=== PATIENT | female | born 1995 | race African-American/Black ===

== ENCOUNTER 2021-12-05 07:51 | Inpatient (IN) ==
[2021-12-05 09:39] LABS: Basophils # 0.1 10*3/uL (0.0-0.2); Basophils % 0.5 % (0.0-0.8); Calcium 11.1 MG/DL (8.5-10.1); Eosinophils # 0.1 10*3/uL (0.0-0.87); Eosinophils % 0.7 % (0.00-10.9); Hematocrit 36.4 VOL% (35.7-47.0); Immature Granulocytes % 0.9 %; Immature Granulocytes Absolute 0.19 #; Lymphocytes # 3.8 10*3/uL (1.4-4.0); Lymphocytes % 18.8 % (21.3-54.2); Mean Corpuscular HGB Conc 28.8 GM/DL (32-36); Monocytes # 0.6 10*3/uL (0.11-0.8); Monocytes % 2.9 % (1.7-12.7); Neutrophils % 76.2 % (38.7-73.9); Osmolality,Calculated 311.9 MOS/KG (273-304); Platelet Count 394 T/CUMM (130-400); Potassium 4.1 MMOL/L (3.5-5.1); Red Blood Count 3.57 MC/CUMM (3.8-5.5); Red Cell Distribution Width 14.4 % (9.3-17.3); White Blood Count 20.2 T/CUMM (4-12)
[2021-12-05 09:42] LABS: Hemoglobin 10.5 GM/DL (12.0-16.0)
[2021-12-05 09:59] LABS: Eosinophils 1 % (0-10); Hypochromia Slight; Lymphocytes 16 % (20-55); Total Cells Counted 100
[2021-12-05 10:00] LABS: Macrocytosis Slight; Platelet Estimate Normal
[2021-12-05] MEDS ORDERED: SODIUM CHLORIDE 0.9% 1,000 ML IV STA (10:08)
[2021-12-05 11:03] LABS: Bacteria,Urine Many /HPF (Few); Mucus,Urine Occasional /LPF (Occasional); RBC,Urine 2 /HPF (0-4); Urine Appearance Clear (Clear); Urine Color Yellow (Yellow)
[2021-12-05 11:04] LABS: Bilirubin,Urine Negative (Negative); Blood, Urine Trace mg/dL (Negative); Glucose,Urine (UA) Negative (Negative); Ketones,Urine Negative (Negative); Nitrite,Urine Positive (Negative); Protein,Urine >=300 mg/dL (Negative); Urine Urobilinogen 0.2 eU/dL (<2.0)
[2021-12-05] MEDS ORDERED: GLUCAGON 1 MG VIAL IM PRN (12:58)
[2021-12-05] MEDS ORDERED: ONDANSETRON 4 MG/2 ML VIAL IV PRN (12:58)
[2021-12-05] MEDS ORDERED: DEXTROSE 10% 250 ML BAG IV PRN (13:03)
[2021-12-05] MEDS ORDERED: ACETAMINOPHEN 160 MG/5 ML UDCUP PEG PRN (13:36)
[2021-12-05] MEDS ORDERED: ALBUTEROL/IPRATROPIUM 3 ML NEB RESP TX PRN (13:45)
[2021-12-05] MEDS: INSULIN LISPRO 100 UNIT/ML SUBCUT SCH (18:00)
[2021-12-05 18:03] LABS: Calcium 10.8 MG/DL (8.5-10.1); Osmolality,Calculated 309.7 MOS/KG (273-304); Potassium 3.7 MMOL/L (3.5-5.1)
[2021-12-05] MEDS: BACLOFEN 10 MG TABLET PEG SCH ×2 (18:50→22:44)
[2021-12-05] MEDS: MIDODRINE 5 MG TABLET PEG SCH ×2 (18:51→20:47)
[2021-12-05] MEDS: DEXTROSE 5% 1,000 ML IV SCH (19:17)
[2021-12-05] MEDS: GLUTAMINE PER TUBE SCH (20:46)
[2021-12-05] MEDS: FERROUS SULFATE 300 MG/5 ML UDCUP PO SCH (20:46)
[2021-12-05] MEDS: ARGININE PER TUBE SCH (20:46)
[2021-12-05] MEDS: [UNRECOGNIZED DRUG - OTHER] PER TUBE SCH (20:46)
[2021-12-05] MEDS: OLANZapine ODT 5 MG TABLET PO SCH (20:47)
[2021-12-05] MEDS: METOCLOPRAMIDE 10 MG/10 ML UDCUP PEG SCH (20:47)
[2021-12-05] MEDS: MELATONIN 3 MG TABLET PEG SCH (20:47)
[2021-12-05 21:41] LABS: Calcium 11.2 MG/DL (8.5-10.1); Osmolality,Calculated 314.7 MOS/KG (273-304); Potassium 3.7 MMOL/L (3.5-5.1)
[2021-12-06 01:14] LABS: Basophils # 0.1 10*3/uL (0.0-0.2); Basophils % 0.5 % (0.0-0.8); Eosinophils # 0.2 10*3/uL (0.0-0.87); Eosinophils % 1.3 % (0.00-10.9); Hematocrit 32.8 VOL% (35.7-47.0); Hemoglobin 9.7 GM/DL (12.0-16.0); Immature Granulocytes % 0.8 %; Immature Granulocytes Absolute 0.12 #; Lymphocytes # 3.2 10*3/uL (1.4-4.0); Lymphocytes % 21.5 % (21.3-54.2); Mean Corpuscular HGB Conc 29.6 GM/DL (32-36); Mean Corpuscular Volume 101.2 FL (87-102); Mean Platelet Volume 11.1 FL (9.6-12.0); Monocytes # 0.7 10*3/uL (0.11-0.8); Monocytes % 4.8 % (1.7-12.7); Neutrophils % 71.1 % (38.7-73.9); Platelet Count 300 T/CUMM (130-400); Red Blood Count 3.24 MC/CUMM (3.8-5.5); Red Cell Distribution Width 14.5 % (9.3-17.3)
[2021-12-06] MEDS: INSULIN LISPRO 100 UNIT/ML SUBCUT SCH ×4 (01:21→18:29)
[2021-12-06 01:34] LABS: Albumin 2.3 G/DL (3.4-5.0); Bilirubin,Total 0.5 MG/DL (0.20-1.00); Calcium 10.8 MG/DL (8.5-10.1); Osmolality,Calculated 310.1 MOS/KG (273-304); Potassium 3.4 MMOL/L (3.5-5.1); Total Protein 8.4 G/DL (6.4-8.2)
[2021-12-06] MEDS: DEXTROSE 5% 1,000 ML IV SCH ×4 (02:09→19:30)
[2021-12-06] MEDS: HYDROmorphone 1 MG/1 ML SYRINGE IV PRN ×3 (02:15→14:21)
[2021-12-06 06:03] LABS: Calcium 10.7 MG/DL (8.5-10.1); Osmolality,Calculated 303.4 MOS/KG (273-304); Potassium 3.5 MMOL/L (3.5-5.1)
[2021-12-06] MEDS: BACLOFEN 10 MG TABLET PEG SCH ×3 (06:31→21:38)
[2021-12-06] MEDS: GLUTAMINE PER TUBE SCH ×2 (08:31→20:04)
[2021-12-06] MEDS: ARGININE PER TUBE SCH ×2 (08:31→20:04)
[2021-12-06] MEDS: [UNRECOGNIZED DRUG - OTHER] PER TUBE SCH ×2 (08:31→20:04)
[2021-12-06] MEDS: MULTIVITAMIN LIQUID (CENTRUM) 60 ML BOTTLE PEG SCH (08:32)
[2021-12-06] MEDS: FERROUS SULFATE 300 MG/5 ML UDCUP PO SCH ×2 (08:32→20:04)
[2021-12-06] MEDS: METOCLOPRAMIDE 10 MG/10 ML UDCUP PEG SCH ×2 (08:33→20:05)
[2021-12-06] MEDS: OLANZapine ODT 5 MG TABLET PO SCH ×2 (08:33→20:05)
[2021-12-06] MEDS: SERTRALINE 50 MG TABLET PEG SCH (08:33)
[2021-12-06] MEDS: POLYETHYLENE GLYCOL POWDER 17 GM PACK PEG SCH (08:33)
[2021-12-06] MEDS: MIDODRINE 5 MG TABLET PEG SCH ×3 (08:33→20:05)
[2021-12-06 09:27] LABS: Osmolality,Calculated 296.7 MOS/KG (273-304); Potassium 3.5 MMOL/L (3.5-5.1)
[2021-12-06] MEDS: COLLAGENASE OINT 30 GM TUBE TOP SCH (11:08)
[2021-12-06] MEDS: GENTAMICIN 0.1% OINT 15 GM TUBE TOP SCH (11:08)
[2021-12-06] MEDS ORDERED: VANCOMYCIN INJ 1,000 MG in SODIUM CHLORIDE 0.9% 250 ML IV SCH (16:00)
[2021-12-06] MEDS: VANCOMYCIN INJ 750 MG in SODIUM CHLORIDE 0.9% 250 ML IV SCH (17:06)
[2021-12-06] MEDS: MELATONIN 3 MG TABLET PEG SCH (20:04)
[2021-12-07] MEDS: INSULIN LISPRO 100 UNIT/ML SUBCUT SCH ×6 (00:36→23:54)
[2021-12-07] MEDS: DEXTROSE 5% 1,000 ML IV SCH ×4 (02:11→20:48)
[2021-12-07] MEDS: VANCOMYCIN INJ 750 MG in SODIUM CHLORIDE 0.9% 250 ML IV SCH ×2 (04:53→17:47)
[2021-12-07] MEDS: BACLOFEN 10 MG TABLET PEG SCH ×3 (05:11→21:07)
[2021-12-07 05:15] LABS: Basophils # 0.1 10*3/uL (0.0-0.2); Basophils % 0.5 % (0.0-0.8); Eosinophils # 0.3 10*3/uL (0.0-0.87); Hematocrit 28.1 VOL% (35.7-47.0); Hemoglobin 8.4 GM/DL (12.0-16.0); Immature Granulocytes % 0.8 %; Immature Granulocytes Absolute 0.13 #; Lymphocytes # 3.7 10*3/uL (1.4-4.0); Lymphocytes % 21.8 % (21.3-54.2); Mean Corpuscular HGB Conc 29.9 GM/DL (32-36); Mean Corpuscular Volume 100.4 FL (87-102); Mean Platelet Volume 11.5 FL (9.6-12.0); Monocytes # 0.9 10*3/uL (0.11-0.8); Monocytes % 5.6 % (1.7-12.7); Neutrophils % 69.3 % (38.7-73.9); Platelet Count 275 T/CUMM (130-400); Red Cell Distribution Width 13.8 % (9.3-17.3); White Blood Count 16.9 T/CUMM (4-12)
[2021-12-07 05:42] LABS: Calcium 10.3 MG/DL (8.5-10.1); Osmolality,Calculated 288.1 MOS/KG (273-304); Potassium 2.8 MMOL/L (3.5-5.1)
[2021-12-07] MEDS: HYDROmorphone 1 MG/1 ML SYRINGE IV PRN ×2 (06:00→21:33)
[2021-12-07] MEDS ORDERED: FUROSEMIDE 40 MG/4 ML VIAL IV ONE (10:58)
[2021-12-07] MEDS: SODIUM CHLOR 0.9% KCL 20 MEQ 20 MEQ/1,000 ML BAG IV SCH ×2 (11:18→20:37)
[2021-12-07] MEDS: GENTAMICIN 0.1% OINT 15 GM TUBE TOP SCH (11:22)
[2021-12-07] MEDS: COLLAGENASE OINT 30 GM TUBE TOP SCH (11:22)
[2021-12-07] MEDS: MULTIVITAMIN LIQUID (CENTRUM) 60 ML BOTTLE PEG SCH (11:23)
[2021-12-07] MEDS: GLUTAMINE PER TUBE SCH ×2 (11:23→20:40)
[2021-12-07] MEDS: FERROUS SULFATE 300 MG/5 ML UDCUP PO SCH ×2 (11:23→20:40)
[2021-12-07] MEDS: ARGININE PER TUBE SCH ×2 (11:23→20:40)
[2021-12-07] MEDS: POLYETHYLENE GLYCOL POWDER 17 GM PACK PEG SCH (11:23)
[2021-12-07] MEDS: [UNRECOGNIZED DRUG - OTHER] PER TUBE SCH ×2 (11:23→20:40)
[2021-12-07] MEDS: SERTRALINE 50 MG TABLET PEG SCH (11:24)
[2021-12-07] MEDS: OLANZapine ODT 5 MG TABLET PO SCH ×2 (11:24→20:41)
[2021-12-07] MEDS: METOCLOPRAMIDE 10 MG/10 ML UDCUP PEG SCH ×2 (11:24→20:41)
[2021-12-07] MEDS: MIDODRINE 5 MG TABLET PEG SCH ×3 (11:24→20:41)
[2021-12-07] MEDS: ENOXAPARIN 30 MG/0.3 ML SYRINGE SUBCUT SCH (13:05)
[2021-12-07] MEDS: cefTRIAXone 1,000 MG in SODIUM CHLORIDE 0.9% 100 ML IV SCH (13:06)
[2021-12-07 17:16] LABS: Calcium 10.3 MG/DL (8.5-10.1); Osmolality,Calculated 282.3 MOS/KG (273-304); Potassium 2.9 MMOL/L (3.5-5.1)
[2021-12-07] MEDS: MELATONIN 3 MG TABLET PEG SCH (20:40)
[2021-12-08] MEDS: DEXTROSE 5% 1,000 ML IV SCH ×2 (02:48→11:00)
[2021-12-08] MEDS: VANCOMYCIN INJ 750 MG in SODIUM CHLORIDE 0.9% 250 ML IV SCH ×2 (03:59→17:05)
[2021-12-08] MEDS: SODIUM CHLOR 0.9% KCL 20 MEQ 20 MEQ/1,000 ML BAG IV SCH ×3 (05:20→23:47)
[2021-12-08] MEDS: BACLOFEN 10 MG TABLET PEG SCH ×3 (05:44→22:00)
[2021-12-08] MEDS: INSULIN LISPRO 100 UNIT/ML SUBCUT SCH ×3 (05:56→17:17)
[2021-12-08 06:06] LABS: Basophils % 0.3 % (0.0-0.8); Eosinophils # 0.2 10*3/uL (0.0-0.87); Eosinophils % 2.4 % (0.00-10.9); Hematocrit 23.5 VOL% (35.7-47.0); Hemoglobin 7.2 GM/DL (12.0-16.0); Immature Granulocytes % 0.8 %; Immature Granulocytes Absolute 0.07 #; Lymphocytes # 2.1 10*3/uL (1.4-4.0); Lymphocytes % 24.2 % (21.3-54.2); Mean Corpuscular HGB Conc 30.6 GM/DL (32-36); Mean Corpuscular Volume 97.9 FL (87-102); Monocytes # 0.4 10*3/uL (0.11-0.8); Monocytes % 4.8 % (1.7-12.7); Neutrophils % 67.5 % (38.7-73.9); Platelet Count 216 T/CUMM (130-400); Red Cell Distribution Width 13.8 % (9.3-17.3); White Blood Count 8.8 T/CUMM (4-12)
[2021-12-08 06:21] LABS: Calcium 8.6 MG/DL (8.5-10.1); Osmolality,Calculated 286.7 MOS/KG (273-304); Potassium 3.1 MMOL/L (3.5-5.1)
[2021-12-08] MEDS ORDERED: LACTATED RINGERS 1,000 ML IV SCH (08:18)
[2021-12-08] MEDS ORDERED: POTASSIUM BICARB EFFERVESCENT 20 MEQ TAB.EFF PO ONE (08:35)
[2021-12-08] MEDS ORDERED: MAGNESIUM SULF RIDER 2 GM/50 ML PREMIX IV ONE (08:36)
[2021-12-08] MEDS ORDERED: propofoL 200 MG/20 ML VIAL IV ONE (09:02)
[2021-12-08] MEDS ORDERED: LIDOCAINE 2% 5 ML VIAL ONE (09:02)
[2021-12-08] MEDS: FERROUS SULFATE 300 MG/5 ML UDCUP PO SCH ×2 (10:56→20:58)
[2021-12-08] MEDS: ARGININE PER TUBE SCH ×2 (10:56→20:54)
[2021-12-08] MEDS: POLYETHYLENE GLYCOL POWDER 17 GM PACK PEG SCH (10:56)
[2021-12-08] MEDS: [UNRECOGNIZED DRUG - OTHER] PER TUBE SCH ×2 (10:56→20:54)
[2021-12-08] MEDS: GENTAMICIN 0.1% OINT 15 GM TUBE TOP SCH (10:56)
[2021-12-08] MEDS: GLUTAMINE PER TUBE SCH ×2 (10:56→20:54)
[2021-12-08] MEDS: MIDODRINE 5 MG TABLET PEG SCH ×3 (10:56→20:58)
[2021-12-08] MEDS: MULTIVITAMIN LIQUID (CENTRUM) 60 ML BOTTLE PEG SCH (10:56)
[2021-12-08] MEDS: OLANZapine ODT 5 MG TABLET PO SCH ×2 (10:57→20:58)
[2021-12-08] MEDS: METOCLOPRAMIDE 10 MG/10 ML UDCUP PEG SCH ×2 (10:57→20:58)
[2021-12-08] MEDS: SERTRALINE 50 MG TABLET PEG SCH (10:57)
[2021-12-08] MEDS: COLLAGENASE OINT 30 GM TUBE TOP SCH (10:57)
[2021-12-08] MEDS: cefTRIAXone 1,000 MG in SODIUM CHLORIDE 0.9% 100 ML IV SCH (10:57)
[2021-12-08] MEDS: ENOXAPARIN 30 MG/0.3 ML SYRINGE SUBCUT SCH (12:11)
[2021-12-08] MEDS ORDERED: ERTAPENEM 500 MG in SODIUM CHLORIDE 0.9% 100 ML IV SCH (15:00)
[2021-12-08] MEDS: MELATONIN 3 MG TABLET PEG SCH (20:58)
[2021-12-09] MEDS: INSULIN LISPRO 100 UNIT/ML SUBCUT SCH ×2 (00:51→06:03)
[2021-12-09] MEDS: VANCOMYCIN INJ 750 MG in SODIUM CHLORIDE 0.9% 250 ML IV SCH (03:56)
[2021-12-09] MEDS: HYDROmorphone 1 MG/1 ML SYRINGE IV PRN ×2 (04:22→09:18)
[2021-12-09] MEDS: BACLOFEN 10 MG TABLET PEG SCH (06:10)
[2021-12-09] MEDS: GENTAMICIN 0.1% OINT 15 GM TUBE TOP SCH (09:13)
[2021-12-09] MEDS: COLLAGENASE OINT 30 GM TUBE TOP SCH (09:13)
[2021-12-09 09:15] LABS: Calcium 9.7 MG/DL (8.5-10.1); Osmolality,Calculated 286.8 MOS/KG (273-304); Potassium 4.4 MMOL/L (3.5-5.1)
[2021-12-09] MEDS: OLANZapine ODT 5 MG TABLET PO SCH (09:16)
[2021-12-09] MEDS: MIDODRINE 5 MG TABLET PEG SCH (09:18)
[2021-12-09] MEDS: METOCLOPRAMIDE 10 MG/10 ML UDCUP PEG SCH (09:18)
[2021-12-09] MEDS: POLYETHYLENE GLYCOL POWDER 17 GM PACK PEG SCH (09:18)
[2021-12-09] MEDS: FERROUS SULFATE 300 MG/5 ML UDCUP PO SCH (09:18)
[2021-12-09] MEDS: SERTRALINE 50 MG TABLET PEG SCH (09:18)
[2021-12-09] MEDS: MULTIVITAMIN LIQUID (CENTRUM) 60 ML BOTTLE PEG SCH (09:56)
[2021-12-09] MEDS: [UNRECOGNIZED DRUG - OTHER] PER TUBE SCH (10:30)
[2021-12-09] MEDS: GLUTAMINE PER TUBE SCH (10:30)
[2021-12-09] MEDS: ARGININE PER TUBE SCH (10:30)
[2021-12-09 12:03] VITALS: BP 131/88
== END 2021-12-09 12:02 | DRG 426 ==
LOC: N.ED 07:51 → SUATTDRO 12:59 → N.EDINP 12:59 → N.TELEN 18:07
PROVIDERS: ADMIT Internal Medicine Geriatric Medicine; ATTEND Internal Medicine

== ENCOUNTER 2021-12-17 20:30 | Inpatient (IN) ==
[2021-12-18] MEDS ORDERED: PIPERACILLIN/TAZOBACTAM 3,375 MG in SODIUM CHLORIDE 0.9% 100 ML IV STA (02:03)
[2021-12-18] MEDS ORDERED: VANCOMYCIN INJ 1,000 MG in SODIUM CHLORIDE 0.9% 250 ML IV STA (02:03)
[2021-12-18 02:14] LABS: Bacteria,Urine Occasional /HPF (Few); Mucus,Urine Occasional /LPF (Occasional); RBC,Urine 6 /HPF (0-4)
[2021-12-18 02:15] LABS: Bilirubin,Urine Negative (Negative); Blood, Urine Negative (Negative); Glucose,Urine (UA) Negative (Negative); Ketones,Urine Negative (Negative); Nitrite,Urine Negative (Negative); Protein,Urine >=300 mg/dL (Negative); Urine Appearance Clear (Clear); Urine Color Yellow (Yellow); Urine Specific Gravity >= 1.030 (1.001-1.035); Urine Urobilinogen 0.2 eU/dL (<2.0); Urine pH 5.5 (4.5-8.0)
[2021-12-18 02:17] LABS: Albumin 2.2 G/DL (3.4-5.0); Bilirubin,Total 0.4 MG/DL (0.20-1.00); Calcium 11.5 MG/DL (8.5-10.1); Osmolality,Calculated 336.4 MOS/KG (273-304); Potassium 3.6 MMOL/L (3.5-5.1)
[2021-12-18 02:19] LABS: Basophils # 0.1 10*3/uL (0.0-0.2); Basophils % 0.3 % (0.0-0.8); Immature Granulocytes % 0.6 %; Immature Granulocytes Absolute 0.13 #; Mean Corpuscular HGB Conc 29.3 GM/DL (32-36); Mean Corpuscular Volume 100.9 FL (87-102); Monocytes # 2.1 10*3/uL (0.11-0.8); Monocytes % 9.9 % (1.7-12.7); NRBC # 0.02 10*3/uL; Neutrophils % 75.2 % (38.7-73.9); Platelet Count 439 T/CUMM (130-400); Red Blood Count 3.38 MC/CUMM (3.8-5.5); Red Cell Distribution Width 14.6 % (9.3-17.3)
[2021-12-18 02:21] LABS: Hematocrit 34.1 VOL% (35.7-47.0)
[2021-12-18] MEDS ORDERED: INSULIN REGULAR 100 UNIT/ML SUBCUT STA (02:28)
[2021-12-18 02:38] LABS: Band Neutrophils 1 % (0-10); Lymphocytes 21 % (20-55); Nucleated Red Blood Cells 1 (0-5); Platelet Estimate Increased; Total Cells Counted 100
[2021-12-18] MEDS ORDERED: DEXTROSE 10% 250 ML BAG IV PRN (02:57)
[2021-12-18] MEDS ORDERED: GLUCAGON 1 MG VIAL IM PRN (02:57)
[2021-12-18] MEDS ORDERED: SODIUM CHLORIDE 0.9% 1,000 ML IV STA (03:18)
[2021-12-18] MEDS ORDERED: LACTATED RINGERS 1,000 ML IV ONE (04:58)
[2021-12-18] MEDS: SODIUM CHLORIDE 0.45% 1,000 ML IV SCH ×2 (05:26→12:33)
[2021-12-18] MEDS: INSULIN LISPRO 100 UNIT/ML SUBCUT SCH ×3 (06:32→17:29)
[2021-12-18] MEDS: ALBUTEROL/IPRATROPIUM 3 ML NEB RESP TX SCH ×3 (07:26→19:01)
[2021-12-18 07:57] LABS: Calcium 10.8 MG/DL (8.5-10.1); Osmolality,Calculated 333.6 MOS/KG (273-304); Potassium 3.3 MMOL/L (3.5-5.1)
[2021-12-18 08:03] LABS: Basophils % 0.3 % (0.0-0.8); Eosinophils % 0.1 % (0.00-10.9); Hematocrit 34.9 VOL% (35.7-47.0); Hemoglobin 10.3 GM/DL (12.0-16.0); Immature Granulocytes % 0.5 %; Immature Granulocytes Absolute 0.06 #; Lymphocytes % 16.7 % (21.3-54.2); Mean Corpuscular HGB Conc 29.5 GM/DL (32-36); Mean Platelet Volume 11.7 FL (9.6-12.0); Monocytes % 8.4 % (1.7-12.7); NRBC # 0.03 10*3/uL; Platelet Count 353 T/CUMM (130-400); Red Blood Count 3.49 MC/CUMM (3.8-5.5); Red Cell Distribution Width 14.6 % (9.3-17.3); White Blood Count 11.9 T/CUMM (4-12)
[2021-12-18 08:12] LABS: Band Neutrophils 9 % (0-10); Eosinophils 2 % (0-10); Lymphocytes 22 % (20-55); Metamyelocytes 1 %; Total Cells Counted 100
[2021-12-18] MEDS: PIPERACILLIN/TAZOBACTAM 3,375 MG in SODIUM CHLORIDE 0.9% 100 ML IV SCH ×2 (09:14→17:12)
[2021-12-18] MEDS: PANTOPRAZOLE 40 MG VIAL IV SCH (09:16)
[2021-12-18] MEDS ORDERED: SODIUM CHLORIDE 0.9% 500 ML IV ONE (11:47)
[2021-12-18] MEDS ORDERED: SODIUM CHLORIDE 0.45% 500 ML IV ONE (13:00)
[2021-12-18] MEDS: DEXTROSE 5% 1,000 ML IV SCH (14:32)
[2021-12-18] MEDS ORDERED: ZINC OXIDE PASTE 113 GM TUBE TOP PRN (14:40)
[2021-12-18] MEDS: MIDODRINE 5 MG TABLET PEG SCH ×2 (15:16→20:23)
[2021-12-18] MEDS: METOCLOPRAMIDE 10 MG/10 ML UDCUP PER TUBE SCH (20:23)
[2021-12-19] MEDS: DEXTROSE 5% 1,000 ML IV SCH ×3 (00:34→18:35)
[2021-12-19] MEDS: PIPERACILLIN/TAZOBACTAM 3,375 MG in SODIUM CHLORIDE 0.9% 100 ML IV SCH ×3 (00:35→16:59)
[2021-12-19] MEDS: ALBUTEROL/IPRATROPIUM 3 ML NEB RESP TX SCH ×4 (00:39→19:49)
[2021-12-19] MEDS: INSULIN LISPRO 100 UNIT/ML SUBCUT SCH ×4 (02:14→18:35)
[2021-12-19] MEDS ORDERED: VANCOMYCIN INJ 750 MG in SODIUM CHLORIDE 0.9% 250 ML IV SCH (03:00)
[2021-12-19 05:18] LABS: Calcium 9.8 MG/DL (8.5-10.1); Osmolality,Calculated 321.9 MOS/KG (273-304); Phosphorous 1.2 MG/DL (2.5-4.9); Potassium 2.7 MMOL/L (3.5-5.1)
[2021-12-19 05:33] LABS: Basophils % 0.2 % (0.0-0.8); Eosinophils % 0.1 % (0.00-10.9); Hematocrit 27.3 VOL% (35.7-47.0); Immature Granulocytes % 0.6 %; Lymphocytes # 2.3 10*3/uL (1.4-4.0); Lymphocytes % 12.8 % (21.3-54.2); Mean Corpuscular HGB Conc 29.3 GM/DL (32-36); Mean Corpuscular Volume 101.9 FL (87-102); Mean Platelet Volume 12.5 FL (9.6-12.0); Monocytes % 5.4 % (1.7-12.7); NRBC # 0.03 10*3/uL; Neutrophils % 80.9 % (38.7-73.9); Platelet Count 300 T/CUMM (130-400); Red Blood Count 2.68 MC/CUMM (3.8-5.5); Red Cell Distribution Width 14.9 % (9.3-17.3); White Blood Count 17.9 T/CUMM (4-12)
[2021-12-19 06:27] LABS: Band Neutrophils 7 % (0-10); Lymphocytes 19 % (20-55); Total Cells Counted 100
[2021-12-19 06:28] LABS: Platelet Estimate Adequate
[2021-12-19] MEDS: CALCIUM ACETATE 667 MG CAPSULE PEG SCH ×4 (11:09→20:52)
[2021-12-19] MEDS: METOCLOPRAMIDE 10 MG/10 ML UDCUP PER TUBE SCH ×2 (11:11→20:52)
[2021-12-19] MEDS: MIDODRINE 5 MG TABLET PEG SCH ×3 (11:12→20:56)
[2021-12-19] MEDS: PANTOPRAZOLE 40 MG VIAL IV SCH (11:13)
[2021-12-19] MEDS: POTASSIUM BICARB EFFERVESCENT 20 MEQ TAB.EFF PER TUBE PRN ×4 (11:13→18:36)
[2021-12-19] MEDS: ACETAMINOPHEN 325 MG/10.15 ML UDCUP PO PRN ×2 (14:07→20:52)
[2021-12-19] MEDS: METOPROLOL TARTRATE 25 MG TABLET PO SCH ×2 (14:09→20:53)
[2021-12-19] MEDS ORDERED: METOPROLOL TARTRATE 25 MG TABLET PO SCH (21:00)
[2021-12-20] MEDS: ALBUTEROL/IPRATROPIUM 3 ML NEB RESP TX SCH ×4 (00:41→19:23)
[2021-12-20] MEDS: PIPERACILLIN/TAZOBACTAM 3,375 MG in SODIUM CHLORIDE 0.9% 100 ML IV SCH ×2 (00:44→10:55)
[2021-12-20] MEDS: INSULIN LISPRO 100 UNIT/ML SUBCUT SCH ×4 (00:45→19:28)
[2021-12-20 04:57] LABS: Basophils % 0.2 % (0.0-0.8); Eosinophils # 0.3 10*3/uL (0.0-0.87); Eosinophils % 1.5 % (0.00-10.9); Hematocrit 27.6 VOL% (35.7-47.0); Immature Granulocytes % 1.1 %; Immature Granulocytes Absolute 0.23 #; Lymphocytes # 3.3 10*3/uL (1.4-4.0); Lymphocytes % 15.7 % (21.3-54.2); Mean Corpuscular Volume 102.6 FL (87-102); Mean Platelet Volume 12.5 FL (9.6-12.0); Monocytes # 1.1 10*3/uL (0.11-0.8); Monocytes % 5.1 % (1.7-12.7); Neutrophils % 76.4 % (38.7-73.9); Platelet Count 265 T/CUMM (130-400); Red Blood Count 2.69 MC/CUMM (3.8-5.5); Red Cell Distribution Width 14.7 % (9.3-17.3); White Blood Count 20.7 T/CUMM (4-12)
[2021-12-20 05:17] LABS: Calcium 10.2 MG/DL (8.5-10.1); Osmolality,Calculated 299.4 MOS/KG (273-304); Potassium 3.8 MMOL/L (3.5-5.1)
[2021-12-20 05:21] LABS: Band Neutrophils 3 % (0-10); Lymphocytes 18 % (20-55); Total Cells Counted 100
[2021-12-20 05:22] LABS: Hypochromia Slight; Platelet Estimate Normal
[2021-12-20] MEDS: ACETAMINOPHEN 325 MG/10.15 ML UDCUP PO PRN ×2 (05:57→15:50)
[2021-12-20] MEDS ORDERED: HYDROcod/ACETAMIN 7.5-325 MG/15 ML UDCUP PO PRN (07:35)
[2021-12-20] MEDS: CALCIUM ACETATE 667 MG CAPSULE PEG SCH (10:56)
[2021-12-20] MEDS: METOCLOPRAMIDE 10 MG/10 ML UDCUP PER TUBE SCH ×2 (10:56→20:10)
[2021-12-20] MEDS: SERTRALINE 50 MG TABLET PEG SCH (10:56)
[2021-12-20] MEDS: PANTOPRAZOLE 40 MG VIAL IV SCH (10:56)
[2021-12-20] MEDS: MIDODRINE 5 MG TABLET PEG SCH ×3 (10:56→20:10)
[2021-12-20] MEDS: DEXTROSE 5% 1,000 ML IV SCH ×3 (11:23→12:46)
[2021-12-20] MEDS: POTASSIUM PHOSPHATE 30 MMOL in SODIUM CHLORIDE 0.9% 250 ML IV SCH ×2 (11:25→17:18)
[2021-12-20] MEDS: HYDROcod/ACETAMIN 7.5-325 MG/15 ML UDCUP PEG PRN ×2 (11:26→20:10)
[2021-12-20] MEDS: METOPROLOL TARTRATE 25 MG TABLET PO SCH (12:46)
[2021-12-20] MEDS: MEROPENEM 500 MG in SODIUM CHLORIDE 0.9% 100 ML IV SCH ×2 (15:35→20:09)
[2021-12-20] MEDS: VANCOMYCIN INJ 750 MG in SODIUM CHLORIDE 0.9% 250 ML IV SCH (17:18)
[2021-12-21] MEDS: DEXTROSE 5% 1,000 ML IV SCH ×3 (00:27→10:16)
[2021-12-21] MEDS: ALBUTEROL/IPRATROPIUM 3 ML NEB RESP TX SCH ×4 (00:40→19:14)
[2021-12-21] MEDS: INSULIN LISPRO 100 UNIT/ML SUBCUT SCH ×4 (01:00→19:01)
[2021-12-21] MEDS: HYDROcod/ACETAMIN 7.5-325 MG/15 ML UDCUP PEG PRN ×3 (02:53→20:35)
[2021-12-21] MEDS: VANCOMYCIN INJ 750 MG in SODIUM CHLORIDE 0.9% 250 ML IV SCH ×2 (02:53→16:02)
[2021-12-21] MEDS: MEROPENEM 500 MG in SODIUM CHLORIDE 0.9% 100 ML IV SCH ×4 (02:54→20:33)
[2021-12-21 05:12] LABS: Basophils # 0.1 10*3/uL (0.0-0.2); Basophils % 0.3 % (0.0-0.8); Eosinophils # 0.5 10*3/uL (0.0-0.87); Eosinophils % 2.9 % (0.00-10.9); Hematocrit 24.3 VOL% (35.7-47.0); Immature Granulocytes % 2.2 %; Immature Granulocytes Absolute 0.39 #; Lymphocytes # 2.1 10*3/uL (1.4-4.0); Lymphocytes % 11.6 % (21.3-54.2); Mean Corpuscular HGB Conc 28.8 GM/DL (32-36); Mean Corpuscular Volume 102.5 FL (87-102); Mean Platelet Volume 12.1 FL (9.6-12.0); Monocytes # 1.2 10*3/uL (0.11-0.8); Monocytes % 6.7 % (1.7-12.7); Neutrophils % 76.3 % (38.7-73.9); Platelet Count 229 T/CUMM (130-400); Red Blood Count 2.37 MC/CUMM (3.8-5.5); Red Cell Distribution Width 14.3 % (9.3-17.3); White Blood Count 17.9 T/CUMM (4-12)
[2021-12-21 05:44] LABS: Calcium 8.7 MG/DL (8.5-10.1); Osmolality,Calculated 283.5 MOS/KG (273-304); Potassium 4.1 MMOL/L (3.5-5.1)
[2021-12-21 06:02] LABS: Band Neutrophils 5 % (0-10); Eosinophils 4 % (0-10); Hypochromia Slight; Lymphocytes 13 % (20-55); Polychromasia Slight; Total Cells Counted 100
[2021-12-21 06:03] LABS: Microcytosis Slight; Platelet Estimate Normal
[2021-12-21] MEDS ORDERED: SODIUM CHLORIDE 0.9% 1,000 ML IV PRN (07:41)
[2021-12-21] MEDS ORDERED: MAGNESIUM SULF RIDER 4 GM/100 ML PREMIX IV ONE (08:30)
[2021-12-21] MEDS: SERTRALINE 50 MG TABLET PEG SCH (10:15)
[2021-12-21] MEDS: CHOLECALCIFEROL 5,000 UNIT TABLET PER TUBE SCH (10:15)
[2021-12-21] MEDS: MIDODRINE 5 MG TABLET PEG SCH ×2 (10:15→20:34)
[2021-12-21] MEDS: PANTOPRAZOLE 40 MG VIAL IV SCH (10:15)
[2021-12-21] MEDS: METOCLOPRAMIDE 10 MG/10 ML UDCUP PER TUBE SCH ×2 (10:16→20:34)
[2021-12-21] MEDS: ACETAMINOPHEN 325 MG/10.15 ML UDCUP PO PRN (10:24)
[2021-12-21 10:28] LABS: Hematocrit 27.1 VOL% (35.7-47.0); Hemoglobin 7.8 GM/DL (12.0-16.0)
[2021-12-22] MEDS: ALBUTEROL/IPRATROPIUM 3 ML NEB RESP TX SCH ×4 (00:09→20:04)
[2021-12-22] MEDS: INSULIN LISPRO 100 UNIT/ML SUBCUT SCH ×4 (00:52→18:21)
[2021-12-22] MEDS: ACETAMINOPHEN 325 MG/10.15 ML UDCUP PO PRN ×2 (00:55→20:25)
[2021-12-22] MEDS: MEROPENEM 500 MG in SODIUM CHLORIDE 0.9% 100 ML IV SCH ×3 (01:00→14:12)
[2021-12-22] MEDS: VANCOMYCIN INJ 750 MG in SODIUM CHLORIDE 0.9% 250 ML IV SCH ×2 (02:43→14:55)
[2021-12-22] MEDS: DEXTROSE 5% 1,000 ML IV SCH ×2 (02:50→12:45)
[2021-12-22 06:44] LABS: Basophils # 0.1 10*3/uL (0.0-0.2); Basophils % 0.3 % (0.0-0.8); Eosinophils # 0.6 10*3/uL (0.0-0.87); Eosinophils % 3.1 % (0.00-10.9); Hemoglobin 8.3 GM/DL (12.0-16.0); Immature Granulocytes % 5.4 %; Immature Granulocytes Absolute 1.11 #; Lymphocytes # 2.2 10*3/uL (1.4-4.0); Lymphocytes % 10.8 % (21.3-54.2); Mean Corpuscular HGB Conc 30.7 GM/DL (32-36); Mean Corpuscular Volume 94.4 FL (87-102); Mean Platelet Volume 11.6 FL (9.6-12.0); Monocytes # 1.2 10*3/uL (0.11-0.8); Monocytes % 5.8 % (1.7-12.7); Neutrophils % 74.6 % (38.7-73.9); Platelet Count 255 T/CUMM (130-400); Red Blood Count 2.86 MC/CUMM (3.8-5.5); Red Cell Distribution Width 16.2 % (9.3-17.3); White Blood Count 20.6 T/CUMM (4-12)
[2021-12-22 07:02] LABS: Band Neutrophils 3 % (0-10); Eosinophils 3 % (0-10); Lymphocytes 10 % (20-55); Platelet Estimate Adequate; Total Cells Counted 100
[2021-12-22 07:03] LABS: Hypochromia Slight
[2021-12-22 07:18] LABS: Calcium 8.5 MG/DL (8.5-10.1); Osmolality,Calculated 276.8 MOS/KG (273-304); Potassium 4.3 MMOL/L (3.5-5.1)
[2021-12-22] MEDS: HYDROcod/ACETAMIN 7.5-325 MG/15 ML UDCUP PEG PRN ×2 (07:33→18:26)
[2021-12-22] MEDS: PANTOPRAZOLE 40 MG VIAL IV SCH (09:04)
[2021-12-22] MEDS: CHOLECALCIFEROL 5,000 UNIT TABLET PER TUBE SCH (09:06)
[2021-12-22] MEDS: METOCLOPRAMIDE 10 MG/10 ML UDCUP PER TUBE SCH ×2 (09:06→20:25)
[2021-12-22] MEDS: SERTRALINE 50 MG TABLET PEG SCH (09:06)
[2021-12-22] MEDS: MIDODRINE 5 MG TABLET PEG SCH ×2 (09:06→20:25)
[2021-12-22] MEDS ORDERED: cefTRIAXone 2,000 MG in SODIUM CHLORIDE 0.9% 100 ML IV SCH (16:00)
[2021-12-22] MEDS ORDERED: FUROSEMIDE 20 MG/2 ML VIAL IV ONE (16:22)
[2021-12-22] MEDS ORDERED: ERTAPENEM 1,000 MG in SODIUM CHLORIDE 0.9% 100 ML IV SCH (17:00)
[2021-12-22] MEDS: GENTAMICIN INJ 360 MG in SODIUM CHLORIDE 0.9% 100 ML IV SCH (18:20)
[2021-12-22] MEDS: METOPROLOL TARTRATE 25 MG TABLET PO SCH (20:24)
[2021-12-23] MEDS: INSULIN LISPRO 100 UNIT/ML SUBCUT SCH ×4 (00:20→18:03)
[2021-12-23] MEDS: ALBUTEROL/IPRATROPIUM 3 ML NEB RESP TX SCH ×5 (01:25→18:53)
[2021-12-23 04:42] LABS: Basophils # 0.2 10*3/uL (0.0-0.2); Basophils % 0.7 % (0.0-0.8); Eosinophils # 0.4 10*3/uL (0.0-0.87); Hematocrit 29.4 VOL% (35.7-47.0); Hemoglobin 9.1 GM/DL (12.0-16.0); Immature Granulocytes % 6.8 %; Immature Granulocytes Absolute 1.49 #; Lymphocytes # 2.9 10*3/uL (1.4-4.0); Lymphocytes % 13.3 % (21.3-54.2); Mean Corpuscular Volume 94.2 FL (87-102); Monocytes # 1.3 10*3/uL (0.11-0.8); Monocytes % 5.7 % (1.7-12.7); NRBC # 0.02 10*3/uL; Neutrophils % 71.5 % (38.7-73.9); Platelet Count 344 T/CUMM (130-400); Red Blood Count 3.12 MC/CUMM (3.8-5.5)
[2021-12-23 05:09] LABS: Band Neutrophils 2 % (0-10); Eosinophils 1 % (0-10); Hypochromia Slight; Lymphocytes 8 % (20-55); Platelet Estimate Adequate; Total Cells Counted 100
[2021-12-23] MEDS ORDERED: DIGOXIN 0.5 MG/2 ML AMP IV ONE (09:10)
[2021-12-23] MEDS: METOPROLOL TARTRATE 25 MG TABLET PO SCH ×2 (10:31→20:00)
[2021-12-23] MEDS: MIDODRINE 5 MG TABLET PEG SCH ×2 (10:31→20:00)
[2021-12-23] MEDS: SERTRALINE 50 MG TABLET PEG SCH (10:31)
[2021-12-23] MEDS: CHOLECALCIFEROL 5,000 UNIT TABLET PER TUBE SCH (10:31)
[2021-12-23] MEDS: METOCLOPRAMIDE 10 MG/10 ML UDCUP PER TUBE SCH ×2 (10:31→20:00)
[2021-12-23] MEDS: PANTOPRAZOLE 40 MG VIAL IV SCH (10:32)
[2021-12-23] MEDS: MICAFUNGIN 100 MG in SODIUM CHLORIDE 0.9% 100 ML IV SCH (10:48)
[2021-12-23] MEDS: ACETAMINOPHEN 325 MG/10.15 ML UDCUP PO PRN ×2 (13:46→20:00)
[2021-12-23] MEDS ORDERED: FUROSEMIDE 40 MG/4 ML VIAL IV ONE (14:00)
[2021-12-23] MEDS: GENTAMICIN INJ 360 MG in SODIUM CHLORIDE 0.9% 100 ML IV SCH (17:43)
[2021-12-24] MEDS: ALBUTEROL/IPRATROPIUM 3 ML NEB RESP TX SCH ×4 (00:01→18:55)
[2021-12-24] MEDS: INSULIN LISPRO 100 UNIT/ML SUBCUT SCH ×4 (00:09→17:54)
[2021-12-24 05:23] LABS: Basophils # 0.2 10*3/uL (0.0-0.2); Basophils % 0.6 % (0.0-0.8); Eosinophils # 0.3 10*3/uL (0.0-0.87); Eosinophils % 1.1 % (0.00-10.9); Hemoglobin 9.4 GM/DL (12.0-16.0); Immature Granulocytes % 8.4 %; Immature Granulocytes Absolute 2.07 #; Lymphocytes # 4.4 10*3/uL (1.4-4.0); Lymphocytes % 17.9 % (21.3-54.2); Mean Corpuscular HGB Conc 30.3 GM/DL (32-36); Mean Platelet Volume 11.3 FL (9.6-12.0); Monocytes # 1.5 10*3/uL (0.11-0.8); Monocytes % 6.2 % (1.7-12.7); Neutrophils % 65.8 % (38.7-73.9); Platelet Count 414 T/CUMM (130-400); Red Blood Count 3.23 MC/CUMM (3.8-5.5); Red Cell Distribution Width 16.2 % (9.3-17.3); White Blood Count 24.5 T/CUMM (4-12)
[2021-12-24 05:38] LABS: Calcium 10.4 MG/DL (8.5-10.1); Osmolality,Calculated 291.8 MOS/KG (273-304); Potassium 3.6 MMOL/L (3.5-5.1)
[2021-12-24 05:46] LABS: Band Neutrophils 4 % (0-10); Lymphocytes 19 % (20-55); Platelet Estimate Adequate; Total Cells Counted 100
[2021-12-24 05:47] LABS: Hypochromia Slight
[2021-12-24] MEDS: MIDODRINE 5 MG TABLET PEG SCH ×2 (09:27→20:58)
[2021-12-24] MEDS: CHOLECALCIFEROL 5,000 UNIT TABLET PER TUBE SCH (09:27)
[2021-12-24] MEDS: METOCLOPRAMIDE 10 MG/10 ML UDCUP PER TUBE SCH ×2 (09:27→20:58)
[2021-12-24] MEDS: METOPROLOL TARTRATE 25 MG TABLET PO SCH ×2 (09:27→20:58)
[2021-12-24] MEDS: SERTRALINE 50 MG TABLET PEG SCH (09:28)
[2021-12-24] MEDS: OMEPRAZOLE ODT 20 MG TABLET PEG SCH (09:29)
[2021-12-24] MEDS: MICAFUNGIN 100 MG in SODIUM CHLORIDE 0.9% 100 ML IV SCH (09:42)
[2021-12-24] MEDS: ACETAMINOPHEN 325 MG/10.15 ML UDCUP PO PRN ×2 (14:59→20:59)
[2021-12-24] MEDS: POTASSIUM BICARB EFFERVESCENT 20 MEQ TAB.EFF PEG SCH (20:58)
[2021-12-25] MEDS: INSULIN LISPRO 100 UNIT/ML SUBCUT SCH ×5 (00:12→23:28)
[2021-12-25] MEDS: IBUPROFEN 100 MG/5 ML UDCUP PO PRN ×2 (00:12→06:08)
[2021-12-25] MEDS: ALBUTEROL/IPRATROPIUM 3 ML NEB RESP TX SCH ×4 (00:25→20:13)
[2021-12-25] MEDS: ACETAMINOPHEN 325 MG/10.15 ML UDCUP PO PRN (04:12)
[2021-12-25 06:01] LABS: Basophils # 0.2 10*3/uL (0.0-0.2); Basophils % 0.7 % (0.0-0.8); Eosinophils # 0.2 10*3/uL (0.0-0.87); Eosinophils % 0.6 % (0.00-10.9); Hematocrit 30.7 VOL% (35.7-47.0); Hemoglobin 9.2 GM/DL (12.0-16.0); Immature Granulocytes % 6.9 %; Immature Granulocytes Absolute 1.69 #; Lymphocytes # 4.5 10*3/uL (1.4-4.0); Lymphocytes % 18.2 % (21.3-54.2); Mean Corpuscular Volume 97.8 FL (87-102); Monocytes # 1.4 10*3/uL (0.11-0.8); Monocytes % 5.8 % (1.7-12.7); Neutrophils % 67.8 % (38.7-73.9); Platelet Count 457 T/CUMM (130-400); Red Blood Count 3.14 MC/CUMM (3.8-5.5); Red Cell Distribution Width 16.4 % (9.3-17.3); White Blood Count 24.4 T/CUMM (4-12)
[2021-12-25 06:16] LABS: Calcium 10.7 MG/DL (8.5-10.1); Osmolality,Calculated 296.1 MOS/KG (273-304); Potassium 4.5 MMOL/L (3.5-5.1)
[2021-12-25 06:29] LABS: Band Neutrophils 4 % (0-10); Eosinophils 1 % (0-10); Lymphocytes 11 % (20-55); Platelet Estimate Adequate; Total Cells Counted 100
[2021-12-25] MEDS: POTASSIUM BICARB EFFERVESCENT 20 MEQ TAB.EFF PEG SCH ×2 (09:34→21:57)
[2021-12-25] MEDS: OMEPRAZOLE ODT 20 MG TABLET PEG SCH (09:34)
[2021-12-25] MEDS: METOPROLOL TARTRATE 25 MG TABLET PO SCH ×2 (09:34→23:18)
[2021-12-25] MEDS: MIDODRINE 5 MG TABLET PEG SCH ×2 (09:34→21:59)
[2021-12-25] MEDS: CHOLECALCIFEROL 5,000 UNIT TABLET PER TUBE SCH (09:34)
[2021-12-25] MEDS: SERTRALINE 50 MG TABLET PEG SCH (09:34)
[2021-12-25] MEDS: METOCLOPRAMIDE 10 MG/10 ML UDCUP PER TUBE SCH ×2 (09:34→22:12)
[2021-12-25] MEDS: MICAFUNGIN 100 MG in SODIUM CHLORIDE 0.9% 100 ML IV SCH (09:35)
[2021-12-25] MEDS: ACETAMINOPHEN 325 MG/10.15 ML UDCUP PO SCH ×2 (13:10→22:10)
[2021-12-25] MEDS ORDERED: KETOROLAC 15 MG/1 ML VIAL IV PRN (15:00)
[2021-12-25] MEDS: AMOXICILLIN/CLAV ES 600 125 ML/BOTTLE PEG SCH ×2 (15:06→23:19)
[2021-12-25] MEDS: BACITRACIN OPH OINT 3.5 GM TUBE LEFT EYE SCH (22:37)
[2021-12-25] MEDS: ERYTHROMYCIN 0.5% OPHT OINT 3.5 GM TUBE LEFT EYE SCH (23:23)
[2021-12-26] MEDS: ALBUTEROL/IPRATROPIUM 3 ML NEB RESP TX SCH ×4 (00:21→20:00)
[2021-12-26] MEDS: ACETAMINOPHEN 325 MG/10.15 ML UDCUP PO SCH ×2 (04:35→09:18)
[2021-12-26 05:48] LABS: Osmolality,Calculated 298.1 MOS/KG (273-304); Potassium 5.1 MMOL/L (3.5-5.1)
[2021-12-26] MEDS: INSULIN LISPRO 100 UNIT/ML SUBCUT SCH ×3 (05:57→18:15)
[2021-12-26] MEDS ORDERED: LACTOBACILLUS ACIDOPHILUS/BULGARICUS 1 PACKET PEG SCH (09:00)
[2021-12-26] MEDS: AMOXICILLIN/CLAV ES 600 125 ML/BOTTLE PEG SCH (09:14)
[2021-12-26] MEDS: METOCLOPRAMIDE 10 MG/10 ML UDCUP PER TUBE SCH (09:17)
[2021-12-26] MEDS: POTASSIUM BICARB EFFERVESCENT 20 MEQ TAB.EFF PEG SCH (09:18)
[2021-12-26] MEDS: OMEPRAZOLE ODT 20 MG TABLET PEG SCH (09:19)
[2021-12-26] MEDS: SERTRALINE 50 MG TABLET PEG SCH (09:24)
[2021-12-26] MEDS: MIDODRINE 5 MG TABLET PEG SCH (09:25)
[2021-12-26] MEDS: ERYTHROMYCIN 0.5% OPHT OINT 3.5 GM TUBE LEFT EYE SCH ×3 (09:25→17:25)
[2021-12-26] MEDS: CHOLECALCIFEROL 5,000 UNIT TABLET PER TUBE SCH (09:25)
[2021-12-26] MEDS: METOPROLOL TARTRATE 25 MG TABLET PO SCH (09:26)
[2021-12-26] MEDS: MICAFUNGIN 100 MG in SODIUM CHLORIDE 0.9% 100 ML IV SCH (09:30)
[2021-12-26] MEDS ORDERED: IBUPROFEN 100 MG/5 ML UDCUP PO PRN ×2 (11:45→11:47)
[2021-12-26 12:21] LABS: Basophils # 0.1 10*3/uL (0.0-0.2); Basophils % 0.3 % (0.0-0.8); Eosinophils # 0.2 10*3/uL (0.0-0.87); Eosinophils % 0.9 % (0.00-10.9); Hematocrit 28.3 VOL% (35.7-47.0); Hemoglobin 8.5 GM/DL (12.0-16.0); Immature Granulocytes % 3.1 %; Lymphocytes # 4.3 10*3/uL (1.4-4.0); Lymphocytes % 16.5 % (21.3-54.2); Mean Corpuscular Volume 97.9 FL (87-102); Mean Platelet Volume 10.3 FL (9.6-12.0); Monocytes # 1.3 10*3/uL (0.11-0.8); Neutrophils % 74.2 % (38.7-73.9); Platelet Count 486 T/CUMM (130-400); Red Blood Count 2.89 MC/CUMM (3.8-5.5); Red Cell Distribution Width 16.4 % (9.3-17.3); White Blood Count 25.7 T/CUMM (4-12)
[2021-12-26] MEDS ORDERED: ACETAMINOPHEN 325 MG/10.15 ML UDCUP PO PRN (12:48)
[2021-12-26] MEDS ORDERED: ACETAMINOPHEN 325 MG/10.15 ML UDCUP PO SCH (13:00)
[2021-12-26 13:06] LABS: Eosinophils 1 % (0-10); Lymphocytes 16 % (20-55); Metamyelocytes 1 %; Platelet Estimate Increased; Total Cells Counted 100
[2021-12-26] MEDS: HYDROcod/ACETAMIN 7.5-325 MG/15 ML UDCUP PEG SCH ×2 (13:39→17:28)
[2021-12-26 15:43] LABS: Appearance,CSF Clear; Lymphocytes,CSF 50 %; Neutrophils,CSF 50 %; Red Blood Cell,CSF 54 C/CUMM; White Blood Cell,CSF 2 C/CUMM
[2021-12-26 15:48] LABS: Glucose,CSF 107 MG/DL (40-70)
[2021-12-26 16:18] LABS: PT Patient Result 10.9 SECS (10.5-12.0)
[2021-12-26 16:32] LABS: Bacteria,Urine Occasional /HPF (Few); Mucus,Urine Occasional /LPF (Occasional); RBC,Urine 4 /HPF (0-4); Squamous Epithelial Cell,Urine Occasional /HPF (0-10)
[2021-12-26 16:33] LABS: Bilirubin,Urine Negative (Negative); Blood, Urine Negative (Negative); Glucose,Urine (UA) Negative (Negative); Ketones,Urine Negative (Negative); Nitrite,Urine Negative (Negative); Protein,Urine 100 mg/dL (Negative); Urine Appearance Clear (Clear); Urine Color Yellow (Yellow); Urine Specific Gravity 1.015 (1.001-1.035); Urine Urobilinogen 0.2 eU/dL (<2.0)
[2021-12-26 16:33] LABS: Alanine Aminotransferase 11 U/L (13-56); Albumin 1.9 G/DL (3.4-5.0); Alkaline Phosphatase 95 U/L (45-117); Aspartate Amino Transferase 14 U/L (0-37); Bilirubin,Total < 0.39 MG/DL (0.20-1.00); Blood Urea Nitrogen 41 MG/DL (7-18); Calcium 10.4 MG/DL (8.5-10.1); Carbon Dioxide 28 MMOL/L (21-32); Chloride 109 MMOL/L (98-107); Glucose 167 MG/DL (74-106); Osmolality,Calculated 296.1 MOS/KG (273-304); Potassium 4.7 MMOL/L (3.5-5.1); Sodium 142 MMOL/L (136-145); Total Protein 8.1 G/DL (6.4-8.2)
[2021-12-26] MEDS ORDERED: KETOROLAC 15 MG/1 ML VIAL IV SCH (17:00)
[2021-12-26] MEDS: BACITRACIN OPH OINT 3.5 GM TUBE LEFT EYE SCH (19:49)
[2021-12-26] MEDS ORDERED: LACTATED RINGERS 1,000 ML IV ONE (20:40)
[2021-12-26 20:58] VITALS: BP 120/75
[2021-12-26] MEDS ORDERED: ENOXAPARIN 40 MG/0.4 ML SYRINGE SUBCUT SCH (21:00)
[2021-12-28 10:01] LABS: CMV PCR Source CSF
[2021-12-28 10:10] LABS: Specimen Source CSF
[2021-12-28 10:12] LABS: Epstein-Barr Virus Result Negative (Negative); Epstein-Barr Virus Source CSF
[2021-12-29 12:36] LABS: West Nile Virus Ab, IgG, CSF Negative (Negative); West Nile Virus Ab, IgM, CSF Negative (Negative)
[2021-12-29 12:45] LABS: VDRL Spinal Fluid Negative (Negative)
[2021-12-30 20:21] LABS: M. Tuberculosis PCR Result Negative (Negative); M. Tuberculosis PCR Source CSF
== END 2021-12-26 21:15 | disposition home or self-care (01) | DRG 137 ==
LOC: EDUNIT# → EDBD → N.ED 20:30 → SUATTDRO 12-18 03:04 → N.5E 12-18 03:04
PROVIDERS: ADMIT Internal Medicine Geriatric Medicine; ATTEND Internal Medicine

== ENCOUNTER 2022-02-13 19:05 | Inpatient (IN) ==
[2022-02-13] MEDS ORDERED: PIPERACILLIN/TAZOBACTAM 3,375 MG in SODIUM CHLORIDE 0.9% 100 ML IV STA (19:24)
[2022-02-13] MEDS ORDERED: SODIUM CHLORIDE 0.9% 2,000 ML IV STA (19:24)
[2022-02-13] MEDS ORDERED: VANCOMYCIN INJ 1,000 MG in SODIUM CHLORIDE 0.9% 250 ML IV STA (19:24)
[2022-02-13 20:03] LABS: Basophils # 0.1 10*3/uL (0.0-0.2); Basophils % 0.8 % (0.0-0.8); Eosinophils # 0.1 10*3/uL (0.0-0.87); Eosinophils % 0.8 % (0.00-10.9); Immature Granulocytes % 0.7 %; Immature Granulocytes Absolute 0.11 #; Lymphocytes # 3.2 10*3/uL (1.4-4.0); Lymphocytes % 20.7 % (21.3-54.2); Mean Corpuscular Volume 99.3 FL (87-102); Mean Platelet Volume 10.1 FL (9.6-12.0); Monocytes # 0.6 10*3/uL (0.11-0.8); Monocytes % 3.6 % (1.7-12.7); Neutrophils % 73.4 % (38.7-73.9); Platelet Count 610 T/CUMM (130-400); Red Blood Count 3.02 MC/CUMM (3.8-5.5); Red Cell Distribution Width 15.4 % (9.3-17.3); White Blood Count 15.6 T/CUMM (4-12)
[2022-02-13 20:10] LABS: Mucus,Urine Occasional /LPF (Occasional); RBC,Urine 51 /HPF (0-4)
[2022-02-13 20:11] LABS: Bilirubin,Urine Negative (Negative); Blood, Urine Moderate mg/dL (Negative); Glucose,Urine (UA) Negative (Negative); Ketones,Urine Negative (Negative); Nitrite,Urine Positive (Negative); Protein,Urine 100 mg/dL (Negative); Urine Appearance Slightly Cloudy (Clear); Urine Color Yellow (Yellow); Urine Specific Gravity 1.025 (1.001-1.035); Urine Urobilinogen 0.2 eU/dL (<2.0)
[2022-02-13 20:12] LABS: INR 1.1; PT Patient Result 11.6 SECS (10.1-12.1)
[2022-02-13 20:23] LABS: Alanine Aminotransferase 21 U/L (13-56); Albumin 2.1 G/DL (3.4-5.0); Alkaline Phosphatase 127 U/L (45-117); Aspartate Amino Transferase 23 U/L (0-37); Bilirubin,Total < 0.39 MG/DL (0.20-1.00); Blood Urea Nitrogen 25 MG/DL (7-18); Calcium 12.7 MG/DL (8.5-10.1); Carbon Dioxide 26 MMOL/L (21-32); Chloride 107 MMOL/L (98-107); Glucose 246 MG/DL (74-106); Osmolality,Calculated 288.5 MOS/KG (273-304); Potassium 4.8 MMOL/L (3.5-5.1); Sodium 139 MMOL/L (136-145); Total Protein 10.1 G/DL (6.4-8.2)
[2022-02-13] MEDS ORDERED: hydrALAZINE 20 MG/1 ML VIAL IV PRN (21:20)
[2022-02-13] MEDS ORDERED: GLUCAGON 1 MG VIAL IM PRN (21:20)
[2022-02-13] MEDS ORDERED: DEXTROSE 10% 250 ML BAG IV PRN (21:20)
[2022-02-13] MEDS ORDERED: ONDANSETRON 4 MG/2 ML VIAL IV PRN (21:20)
[2022-02-13] MEDS: MEROPENEM 500 MG in SODIUM CHLORIDE 0.9% 100 ML IV SCH (21:54)
[2022-02-13] MEDS: LACTATED RINGERS 1,000 ML IV SCH (21:54)
[2022-02-13] MEDS ORDERED: ALBUTEROL/IPRATROPIUM 3 ML NEB RESP TX ONE (22:56)
[2022-02-14] MEDS: INSULIN LISPRO 100 UNIT/ML SUBCUT SCH ×4 (00:06→17:28)
[2022-02-14] MEDS: ALBUTEROL/IPRATROPIUM 3 ML NEB RESP TX SCH ×5 (01:13→23:50)
[2022-02-14] MEDS: MEROPENEM 500 MG in SODIUM CHLORIDE 0.9% 100 ML IV SCH ×4 (04:19→22:30)
[2022-02-14 05:36] LABS: Calcium 11.3 MG/DL (8.5-10.1); Osmolality,Calculated 287.8 MOS/KG (273-304); Potassium 4.1 MMOL/L (3.5-5.1)
[2022-02-14] MEDS: LACTATED RINGERS 1,000 ML IV SCH ×4 (06:45→21:30)
[2022-02-14 08:52] LABS: Basophils # 0.1 10*3/uL (0.0-0.2); Basophils % 0.5 % (0.0-0.8); Eosinophils # 0.1 10*3/uL (0.0-0.87); Eosinophils % 0.9 % (0.00-10.9); Hematocrit 25.5 VOL% (35.7-47.0); Immature Granulocytes % 0.9 %; Immature Granulocytes Absolute 0.13 #; Lymphocytes # 2.6 10*3/uL (1.4-4.0); Lymphocytes % 18.1 % (21.3-54.2); Mean Corpuscular HGB Conc 29.4 GM/DL (32-36); Mean Corpuscular Volume 101.2 FL (87-102); Mean Platelet Volume 10.2 FL (9.6-12.0); Monocytes # 0.8 10*3/uL (0.11-0.8); Monocytes % 5.2 % (1.7-12.7); Neutrophils % 74.4 % (38.7-73.9); Platelet Count 463 T/CUMM (130-400); Red Blood Count 2.52 MC/CUMM (3.8-5.5); Red Cell Distribution Width 15.4 % (9.3-17.3); White Blood Count 14.6 T/CUMM (4-12)
[2022-02-14 08:53] LABS: Hemoglobin 7.5 GM/DL (12.0-16.0)
[2022-02-14] MEDS: VANCOMYCIN INJ 1,250 MG in SODIUM CHLORIDE 0.9% 250 ML IV SCH ×2 (09:23→20:15)
[2022-02-14] MEDS ORDERED: LORazepam 0.5 MG TABLET PEG PRN (14:45)
[2022-02-14] MEDS ORDERED: ACETAMINOPHEN 500 MG TABLET PEG PRN (14:45)
[2022-02-14] MEDS ORDERED: ALBUTEROL/IPRATROPIUM 3 ML NEB RESP TX PRN (14:45)
[2022-02-14] MEDS ORDERED: ONDANSETRON 4 MG TABLET PEG PRN (14:45)
[2022-02-14] MEDS: oxyCODONE IR 5 MG TABLET PEG SCH ×2 (15:22→21:30)
[2022-02-14] MEDS: MIDODRINE 5 MG TABLET PEG SCH ×2 (15:23→21:30)
[2022-02-14] MEDS ORDERED: SODIUM CHLORIDE 0.9% 1,000 ML IV PRN (17:48)
[2022-02-14] MEDS ORDERED: ARGININE GLUTAMINE CALCIUM HMB PO SCH (21:00)
[2022-02-14] MEDS: MELATONIN 3 MG TABLET PEG SCH (21:30)
[2022-02-14] MEDS: FAMOTIDINE 20 MG TABLET PEG SCH (21:30)
[2022-02-14] MEDS: FERROUS SULFATE 300 MG/5 ML UDCUP PEG SCH (21:30)
[2022-02-14] MEDS: SENNA 8.6 MG TABLET PEG SCH (21:30)
[2022-02-14] MEDS: METOCLOPRAMIDE 10 MG TABLET PEG SCH (21:30)
[2022-02-14] MEDS: OLANZapine ODT 5 MG TABLET PO SCH (21:30)
[2022-02-14] MEDS: BACLOFEN 10 MG TABLET PEG SCH (22:55)
[2022-02-15] MEDS: INSULIN LISPRO 100 UNIT/ML SUBCUT SCH ×4 (00:45→17:43)
[2022-02-15] MEDS: LACTATED RINGERS 1,000 ML IV SCH ×2 (02:30→11:11)
[2022-02-15] MEDS: oxyCODONE IR 5 MG TABLET PEG SCH ×4 (02:50→20:47)
[2022-02-15] MEDS: MEROPENEM 500 MG in SODIUM CHLORIDE 0.9% 100 ML IV SCH ×4 (03:00→23:08)
[2022-02-15 05:39] LABS: Basophils # 0.1 10*3/uL (0.0-0.2); Basophils % 0.4 % (0.0-0.8); Eosinophils # 0.2 10*3/uL (0.0-0.87); Eosinophils % 0.8 % (0.00-10.9); Hemoglobin 6.9 GM/DL (12.0-16.0); Lymphocytes # 1.8 10*3/uL (1.4-4.0); Mean Corpuscular HGB Conc 28.8 GM/DL (32-36); Mean Platelet Volume 10.2 FL (9.6-12.0); Monocytes # 0.9 10*3/uL (0.11-0.8); Monocytes % 4.7 % (1.7-12.7); Neutrophils % 84.1 % (38.7-73.9); Platelet Count 389 T/CUMM (130-400); Red Blood Count 2.33 MC/CUMM (3.8-5.5); Red Cell Distribution Width 15.7 % (9.3-17.3); White Blood Count 19.6 T/CUMM (4-12)
[2022-02-15] MEDS: BACLOFEN 10 MG TABLET PEG SCH ×3 (06:00→21:30)
[2022-02-15 06:59] LABS: Calcium 10.7 MG/DL (8.5-10.1); Osmolality,Calculated 293.6 MOS/KG (273-304); Potassium 4.3 MMOL/L (3.5-5.1)
[2022-02-15] MEDS: ALBUTEROL/IPRATROPIUM 3 ML NEB RESP TX SCH ×3 (07:34→19:44)
[2022-02-15] MEDS: MIDODRINE 5 MG TABLET PEG SCH ×3 (09:09→20:49)
[2022-02-15] MEDS: OMEPRAZOLE ODT 20 MG TABLET PEG SCH (09:09)
[2022-02-15] MEDS: FAMOTIDINE 20 MG TABLET PEG SCH ×2 (09:09→20:49)
[2022-02-15] MEDS: MULTIVITAMIN (CENTRUM) TABLET PEG SCH (09:09)
[2022-02-15] MEDS: METOCLOPRAMIDE 10 MG TABLET PEG SCH ×2 (09:09→20:49)
[2022-02-15] MEDS: POLYETHYLENE GLYCOL POWDER 17 GM PACK PEG SCH (09:09)
[2022-02-15] MEDS: FERROUS SULFATE 300 MG/5 ML UDCUP PEG SCH ×2 (09:09→20:46)
[2022-02-15] MEDS: SERTRALINE 50 MG TABLET PEG SCH (09:10)
[2022-02-15] MEDS: OLANZapine ODT 5 MG TABLET PO SCH ×2 (09:11→20:46)
[2022-02-15] MEDS: VANCOMYCIN INJ 1,250 MG in SODIUM CHLORIDE 0.9% 250 ML IV SCH ×2 (09:16→23:08)
[2022-02-15 19:51] LABS: Hematocrit 25.2 VOL% (35.7-47.0); Hemoglobin 7.6 GM/DL (12.0-16.0)
[2022-02-15] MEDS: SENNA 8.6 MG TABLET PEG SCH (20:48)
[2022-02-15] MEDS: MELATONIN 3 MG TABLET PEG SCH (20:49)
[2022-02-16] MEDS: INSULIN LISPRO 100 UNIT/ML SUBCUT SCH ×5 (00:28→23:59)
[2022-02-16] MEDS: ALBUTEROL/IPRATROPIUM 3 ML NEB RESP TX SCH ×4 (01:57→19:00)
[2022-02-16] MEDS: oxyCODONE IR 5 MG TABLET PEG SCH ×4 (03:28→21:04)
[2022-02-16] MEDS: LACTATED RINGERS 1,000 ML IV SCH ×2 (04:03→10:47)
[2022-02-16] MEDS: MEROPENEM 500 MG in SODIUM CHLORIDE 0.9% 100 ML IV SCH ×3 (04:03→10:48)
[2022-02-16 05:41] LABS: Basophils # 0.1 10*3/uL (0.0-0.2); Basophils % 0.5 % (0.0-0.8); Eosinophils # 0.4 10*3/uL (0.0-0.87); Eosinophils % 3.1 % (0.00-10.9); Hematocrit 26.8 VOL% (35.7-47.0); Hemoglobin 8.1 GM/DL (12.0-16.0); Immature Granulocytes % 0.9 %; Immature Granulocytes Absolute 0.11 #; Lymphocytes # 2.5 10*3/uL (1.4-4.0); Mean Corpuscular HGB Conc 30.2 GM/DL (32-36); Mean Corpuscular Volume 98.9 FL (87-102); Mean Platelet Volume 10.4 FL (9.6-12.0); Monocytes # 0.8 10*3/uL (0.11-0.8); Monocytes % 6.4 % (1.7-12.7); Neutrophils % 69.1 % (38.7-73.9); Platelet Count 333 T/CUMM (130-400); Red Blood Count 2.71 MC/CUMM (3.8-5.5); Red Cell Distribution Width 17.7 % (9.3-17.3); White Blood Count 12.4 T/CUMM (4-12)
[2022-02-16 05:59] LABS: Calcium 9.7 MG/DL (8.5-10.1); Osmolality,Calculated 289.7 MOS/KG (273-304); Potassium 3.6 MMOL/L (3.5-5.1)
[2022-02-16] MEDS: BACLOFEN 10 MG TABLET PEG SCH ×3 (06:34→21:04)
[2022-02-16] MEDS: POLYETHYLENE GLYCOL POWDER 17 GM PACK PEG SCH (08:53)
[2022-02-16] MEDS: METOCLOPRAMIDE 10 MG TABLET PEG SCH ×2 (08:54→21:05)
[2022-02-16] MEDS: OMEPRAZOLE ODT 20 MG TABLET PEG SCH (08:54)
[2022-02-16] MEDS: SERTRALINE 50 MG TABLET PEG SCH (08:54)
[2022-02-16] MEDS: MIDODRINE 5 MG TABLET PEG SCH ×3 (08:54→21:05)
[2022-02-16] MEDS: MULTIVITAMIN (CENTRUM) TABLET PEG SCH (08:54)
[2022-02-16] MEDS: OLANZapine ODT 5 MG TABLET PO SCH ×2 (08:55→21:05)
[2022-02-16] MEDS: FAMOTIDINE 20 MG TABLET PEG SCH ×2 (08:55→21:05)
[2022-02-16] MEDS: FERROUS SULFATE 300 MG/5 ML UDCUP PEG SCH ×2 (08:55→21:04)
[2022-02-16] MEDS: cefTRIAXone 1,000 MG in SODIUM CHLORIDE 0.9% 100 ML IV SCH (13:21)
[2022-02-16] MEDS: MELATONIN 3 MG TABLET PEG SCH (21:04)
[2022-02-16] MEDS: SENNA 8.6 MG TABLET PEG SCH (21:23)
[2022-02-17] MEDS: ALBUTEROL/IPRATROPIUM 3 ML NEB RESP TX SCH ×3 (00:15→13:20)
[2022-02-17] MEDS: oxyCODONE IR 5 MG TABLET PEG SCH ×3 (03:34→14:08)
[2022-02-17 05:21] LABS: Basophils % 0.3 % (0.0-0.8); Eosinophils # 0.6 10*3/uL (0.0-0.87); Eosinophils % 4.6 % (0.00-10.9); Hematocrit 27.7 VOL% (35.7-47.0); Hemoglobin 8.2 GM/DL (12.0-16.0); Immature Granulocytes % 0.6 %; Immature Granulocytes Absolute 0.07 #; Lymphocytes # 2.3 10*3/uL (1.4-4.0); Lymphocytes % 18.9 % (21.3-54.2); Mean Corpuscular HGB Conc 29.6 GM/DL (32-36); Mean Platelet Volume 10.6 FL (9.6-12.0); Monocytes # 0.7 10*3/uL (0.11-0.8); Monocytes % 5.4 % (1.7-12.7); Neutrophils % 70.2 % (38.7-73.9); Platelet Count 331 T/CUMM (130-400); Red Blood Count 2.77 MC/CUMM (3.8-5.5); Red Cell Distribution Width 16.8 % (9.3-17.3); White Blood Count 12.3 T/CUMM (4-12)
[2022-02-17 05:41] LABS: Alanine Aminotransferase 11 U/L (13-56); Albumin 1.6 G/DL (3.4-5.0); Alkaline Phosphatase 93 U/L (45-117); Aspartate Amino Transferase 10 U/L (0-37); Bilirubin,Total < 0.39 MG/DL (0.20-1.00); Blood Urea Nitrogen 11 MG/DL (7-18); Calcium 10.2 MG/DL (8.5-10.1); Carbon Dioxide 30 MMOL/L (21-32); Chloride 112 MMOL/L (98-107); Glucose 126 MG/DL (74-106); Potassium 4.1 MMOL/L (3.5-5.1); Sodium 143 MMOL/L (136-145); Total Protein 7.3 G/DL (6.4-8.2)
[2022-02-17] MEDS: INSULIN LISPRO 100 UNIT/ML SUBCUT SCH ×2 (05:52→13:15)
[2022-02-17] MEDS: BACLOFEN 10 MG TABLET PEG SCH ×2 (06:11→14:08)
[2022-02-17] MEDS ORDERED: INSULIN GLARGINE 100 UNIT/ML SUBCUT SCH (09:00)
[2022-02-17] MEDS: POLYETHYLENE GLYCOL POWDER 17 GM PACK PEG SCH (09:47)
[2022-02-17] MEDS: FERROUS SULFATE 300 MG/5 ML UDCUP PEG SCH (09:47)
[2022-02-17] MEDS: MULTIVITAMIN (CENTRUM) TABLET PEG SCH (09:48)
[2022-02-17] MEDS: OMEPRAZOLE ODT 20 MG TABLET PEG SCH (09:48)
[2022-02-17] MEDS: MIDODRINE 5 MG TABLET PEG SCH ×2 (09:48→14:08)
[2022-02-17] MEDS: METOCLOPRAMIDE 10 MG TABLET PEG SCH (09:48)
[2022-02-17] MEDS: SERTRALINE 50 MG TABLET PEG SCH (09:48)
[2022-02-17] MEDS: FAMOTIDINE 20 MG TABLET PEG SCH (09:48)
[2022-02-17] MEDS: OLANZapine ODT 5 MG TABLET PO SCH (09:49)
[2022-02-17] MEDS: cefTRIAXone 1,000 MG in SODIUM CHLORIDE 0.9% 100 ML IV SCH (10:10)
[2022-02-17 11:51] VITALS: BP 98/61
== END 2022-02-17 15:30 | DRG 137 ==
LOC: EDUNIT# → EDBD → N.ED 19:05 → SUATTDRO 21:20 → N.EDINP 21:20 → N.5E 22:14
PROVIDERS: ADMIT Internal Medicine Geriatric Medicine; ATTEND Hospitalist